=== PATIENT | female | born 1995 | race Caucasian/White ===

== ENCOUNTER 2022-02-17 10:22 | Emergency (ER) | payer MEDICAID ==
[2022-02-17] MEDS ORDERED: LORazepam 1 MG Tab PO ONE (12:03)
[2022-02-17] MEDS ORDERED: Metoprolol Tartrate 50 MG Tab PO ONE (16:25)
== END 2022-02-17 16:30 | disposition other institution (70) ==
LOC: JP.ED 10:22
DX: F32.A Depression, unspecified (principal); F41.9 Anxiety disorder, unspecified; F17.210 Nicotine dependence, cigarettes, uncomplicated; Z20.822 Contact with and (suspected) exposure to COVID-19
CPT/HCPCS: 36415; 80053; 80143; 80305-QW; 80307; 81001; 81025; 85025; 99283; 99284; A9270-GY; U0002